=== PATIENT | male | born 1945 | race Caucasian/White ===

== ENCOUNTER 2017-01-23 13:53 | Emergency (ER) | payer OTHER ==
[2014-10-16 20:23] VITALS: BMI 36.9
[~2017-01-23 13:53] MED LIST: BAYER CHEWABLE81 MG PO; COUMADIN2.5 MG PO; COUMADIN5 MG PO; FLOMAX0.4 MG PO; LOPRESSOR25 MG PO; PAXIL30 MG PO; PROTONIX40 MG PO; WELLBUTRIN SR150 MG PO; ZOCOR40 MG PO
[2017-01-23 15:10] LABS: BASOPHILS 0.2 % (0.0-2.0); EOSINOPHILS 0.1 % (0-7); HEMATOCRIT 37.3 % (42.0-54.0); HEMOGLOBIN 11.6 g/dL (13.5-17.5); IMMATURE GRANULOCYTES 0.2 % (0-5); LYMPHOCYTES 11.7 % (15-50); MCH 22.8 pg (26.0-34.0); MCHC 31.1 g/dL (31.0-37.0); MCV 73.4 fL (80.0-100.0); MEAN PLATELET VOLUME 9.2 fL (7.4-10.4); MONOCYTES 5.4 % (2-11); NEUTROPHILS 82.4 % (40-80); PLATELET COUNT 181 10x3/uL (130-400); RBC 5.08 10x6/uL (4.20-6.10); RDW 17.1 % (11.5-14.5); WBC 12.4 10x3/uL (4.8-10.8)
[2017-01-23 15:21] LABS: INR 1.26 (0.85-1.17); PROTIME 15.7 SECONDS (11.6-15.0)
[2017-01-23 15:28] LABS: ALKALINE PHOSPHATASE 96 U/L (46-116); ALT (SGPT) 31 U/L (10-68); BILIRUBIN - TOTAL 0.37 mg/dL (0.2-1.3); CALC OSMOLALITY 292 mosm/kg (275-300); CALCIUM 9.1 mg/dL (8.5-10.1); CARBON DIOXIDE 23.7 mmol/L (21.0-32.0); CHLORIDE - SERUM 106 mmol/L (98-107); CREATININE - SERUM 1.8 mg/dL (0.6-1.3); POTASSIUM - SERUM 4.7 mmol/L (3.5-5.1); SODIUM 142 mmol/L (136-145); UREA NITROGEN 22 mg/dL (7-18); eGFR NON AFRICAN AMERICAN 40 mL/min (90-120)
[2017-01-23 15:30] LABS: GLUCOSE 216 mg/dL (74-106)
[2017-01-23 15:36] LABS: CREATINE KINASE 61 UL (21-232); MAGNESIUM - SERUM 1.9 mg/dL (1.8-2.4); PRO BNP 593 pg/mL (0-125)
[2017-01-23 15:50] LABS: TROPONIN-I < 0.017 ng/mL (0.000-0.060)
[2017-01-23 17:19] LABS: APPEARANCE SLT CLOUDY (CLEAR); COLOR ORANGE (YELLOW)
[2017-01-23 17:20] LABS: WHITE CELLS - URINE 0-5 /hpf (0-5)
[2017-01-23 17:21] LABS: BACTERIA MODERATE /hpf (NONE SEEN); MUCUS <1+ /lpf (NONE SEEN); RED CELLS - URINE >50 /hpf (0-5)
== END 2017-01-23 19:42 | disposition home or self-care (01) ==
LOC: D.ER 13:53
PROVIDERS: Emergency Medicine; Nurse Practitioner Family
DX: R10.9 Unspecified abdominal pain (principal); R11.2 Nausea with vomiting, unspecified; E11.9 Type 2 diabetes mellitus without complications; E78.5 Hyperlipidemia, unspecified

== ENCOUNTER 2017-09-29 14:36 | Emergency (ER) | payer OTHER ==
[2014-10-16 20:23] VITALS: BMI 36.9
[2017-09-29 17:57] LABS: BASOPHILS 0.2 % (0-2); EOSINOPHILS 1.5 % (0-7); HEMATOCRIT 37.6 % (42.0-54.0); HEMOGLOBIN 11.7 g/dL (13.5-17.5); IMMATURE GRANULOCYTES 0.2 % (0-5); LYMPHOCYTES 22.2 % (15-50); MCH 23.5 pg (26.0-34.0); MCHC 31.1 g/dL (31.0-37.0); MCV 75.7 fL (80.0-100.0); MEAN PLATELET VOLUME 9.3 fL (7.4-10.4); MONOCYTES 5.1 % (2-11); NEUTROPHILS 70.8 % (40-80); PLATELET COUNT 186 10x3/uL (130-400); RBC 4.97 10x6/uL (4.20-6.10); RDW 16.7 % (11.5-14.5); WBC 8.9 10x3/uL (4.8-10.8)
[2017-09-29 18:21] LABS: ALBUMIN 3.6 g/dL (3.4-5.0); ALKALINE PHOSPHATASE 81 U/L (46-116); ALT (SGPT) 26 U/L (10-68); CHLORIDE - SERUM 109 mmol/L (98-107); CREATININE - SERUM 1.5 mg/dL (0.6-1.3); POTASSIUM - SERUM 4.6 mmol/L (3.5-5.1); PROTEIN - SERUM 6.6 g/dL (6.4-8.2); SODIUM 144 mmol/L (136-145); UREA NITROGEN 28 mg/dL (7-18); eGFR NON AFRICAN AMERICAN 49 mL/min (90-120)
[2017-09-29 18:22] LABS: CALC OSMOLALITY 293 mosm/kg (275-300); GLUCOSE 114 mg/dL (74-106)
[2017-09-29 18:32] LABS: TROPONIN-I < 0.017 ng/mL (0.000-0.060)
== END 2017-09-29 19:24 | disposition home or self-care (01) ==
LOC: D.ER 14:36
PROVIDERS: Physician Assistant Medical
DX: I10 Essential (primary) hypertension (principal); E11.9 Type 2 diabetes mellitus without complications

== ENCOUNTER 2017-10-03 13:51 | Inpatient (IN) | payer OTHER ==
[~2017-10-03] VITALS: Ht 170.2 cm; Wt 103.0 kg
[2017-10-03 14:38] LABS: ALBUMIN 3.8 g/dL (3.4-5.0); ANION GAP 13.6 mmol/L (8-16); BILIRUBIN - TOTAL 0.21 mg/dL (0.2-1.3); CALCIUM 8.9 mg/dL (8.5-10.1); CREATININE - SERUM 1.5 mg/dL (0.6-1.3); POTASSIUM - SERUM 4.6 mmol/L (3.5-5.1); PROTEIN - SERUM 7.3 g/dL (6.4-8.2)
[2017-10-03 14:54] LABS: BASOPHILS 0.2 % (0-2); EOSINOPHILS 2.1 % (0-7); HEMATOCRIT 39.7 % (42.0-54.0); HEMOGLOBIN 12.5 g/dL (13.5-17.5); IMMATURE GRANULOCYTES 0.1 % (0-5); LYMPHOCYTES 33.4 % (15-50); MCH 23.5 pg (26.0-34.0); MCHC 31.5 g/dL (31.0-37.0); MCV 74.6 fL (80.0-100.0); MEAN PLATELET VOLUME 9.2 fL (7.4-10.4); MONOCYTES 9.9 % (2-11); NEUTROPHILS 54.3 % (40-80); PLATELET COUNT 205 10x3/uL (130-400); RBC 5.32 10x6/uL (4.20-6.10); RDW 16.5 % (11.5-14.5); WBC 9.1 10x3/uL (4.8-10.8)
[2017-10-03 16:17] LABS: APPEARANCE CLEAR (CLEAR); COLOR YELLOW (YELLOW)
[2017-10-03 16:18] LABS: BILIRUBIN NEGATIVE (NEGATIVE); GLUCOSE 250 mg/dL (NEGATIVE); KETONE NEGATIVE (NEGATIVE); NITRITE NEGATIVE (NEGATIVE); PROTEIN NEGATIVE (NEGATIVE); UROBILINOGEN NORMAL (NORMAL)
[2017-10-03 16:20] LABS: RED CELLS - URINE 0-5 /hpf (0-5); WHITE CELLS - URINE OCC /hpf (0-5)
[2017-10-03] MEDS ORDERED: ELIQUIS5 MG PO (21:19)
[2017-10-03] MEDS ORDERED: FORTAMET1000 MG/BO PO (21:21)
[2017-10-03] MEDS ORDERED: STOOL SOFTENER240 MG PO (21:21)
[2017-10-03] MEDS ORDERED: MYRBETRIQ50 MG PO (21:22)
[2017-10-03] MEDS ORDERED: PROSCAR5 MG PO (21:22)
[2017-10-03] MEDS ORDERED: PRINIVIL20 MG PO (21:25)
[2017-10-03] MEDS ORDERED: GLIPIZIDE10 MG PO (21:27)
[2017-10-03] MEDS ORDERED: DETROL LA4 MG PO (21:27)
[2017-10-03] MEDS ORDERED: KLONOPIN0.5 MG PO (21:28)
--- NOTE | 2017-10-03 21:35 | NUR ---
RECIEVED TO ROOM 2208. ALERT,ORIENTED. NO COMPLAINTS VOICED. ORIENETED TO ROOM. CL IN REACH
[2017-10-03 23:01] VITALS: BP 164/85; Ht 170.2 cm; Wt 103.0 kg
[2017-10-04] VITALS: BP 137/79
--- NOTE | 2017-10-04 01:25 | NUR ---
EYES CLOSED. RESP EVEN AND UNALBORED. NO DISTRESS NOTED. CL IN REACH
--- NOTE | 2017-10-04 06:05 | NUR ---
AWAKE,LYING QUIETLY. NO COMPLAINTS VOICED. CL IN REACH
--- NOTE | 2017-10-04 07:40 | NUR ---
ASSESSMENT COMPLETE. IV TO R AC PATENT. D10 INFUSING AT 75 CC/HR VIA PUMP. DENIES ANY NEEDS AT THIS TIME.
[2017-10-04 09:38] VITALS: BP 143/82
--- NOTE | 2017-10-04 12:00 | NUR ---
VISITING WITH FAMILY. DENIES ANY NEEDS AT THIS TIME.
[2017-10-04 13:41] VITALS: BP 134/72
--- NOTE | 2017-10-04 13:50 | NUR ---
IV REMOVED. CATHETER TIP INTACT. DISCHARGE TEACHING GIVEN TO PATIENT AND . VOICED UNDERSTANDING.
--- NOTE | 2017-10-04 13:55 | NUR ---
DC'D HOME WITH . ESCORTED TO VEHICLE BY PUFF IRONER VIA WC WITH BELONGINGS.
== END 2017-10-04 13:55 | disposition home or self-care (01) | DRG 639 ==
LOC: D.ER 13:51 → D.MS 19:13
PROVIDERS: Emergency Medicine; ADMIT Emergency Medicine
DX: E11.649 Type 2 diabetes mellitus with hypoglycemia without coma (principal); I10 Essential (primary) hypertension; Z95.0 Presence of cardiac pacemaker; F41.8 Other specified anxiety disorders; F43.10 Post-traumatic stress disorder, unspecified; Z87.891 Personal history of nicotine dependence

== ENCOUNTER 2018-12-28 21:21 | Emergency (ER) | payer OTHER ==
[~2018-12-28] VITALS: Ht 170.2 cm; Wt 100.0 kg
[~2018-12-28 21:21] MED LIST changes: +DETROL LA4 MG PO; +ELIQUIS5 MG PO; +FORTAMET1000 MG/BO PO; +GLIPIZIDE10 MG PO; +KLONOPIN0.5 MG PO; +MYRBETRIQ50 MG PO; +PRINIVIL20 MG PO; +PROSCAR5 MG PO; +STOOL SOFTENER240 MG PO
[2018-12-28 21:29] VITALS: Ht 170.2 cm; Wt 100.0 kg
[2018-12-28] MEDS ORDERED: GLIPIZIDE10 MG PO (21:33)
[2018-12-28] MEDS ORDERED: DETROL1 MG PO (21:34)
[2018-12-28] MEDS ORDERED: HCTZ25 MG PO (21:34)
[2018-12-28] MEDS ORDERED: BUSPAR10 MG PO (21:35)
[2018-12-28 22:47] LABS: APPEARANCE HAZY (CLEAR); COLOR DK YELLOW (YELLOW); SPECIFIC GRAVITY 1.025 (1.005-1.020)
[2018-12-28 22:48] LABS: BILIRUBIN NEGATIVE (NEGATIVE); GLUCOSE NEGATIVE (NEGATIVE); KETONE NEGATIVE (NEGATIVE); NITRITE NEGATIVE (NEGATIVE); PROTEIN 1+ mg/dL (NEGATIVE); UROBILINOGEN NORMAL (NORMAL)
[2018-12-28 22:49] LABS: BACTERIA MANY /hpf (NONE SEEN); RED CELLS - URINE 25-50 /hpf (0-5)
[2018-12-28] MEDS ORDERED: OMNICEF300 MG PO (22:54)
[2018-12-28 23:05] VITALS: BP 126/70
== END 2018-12-28 23:05 | disposition home or self-care (01) ==
LOC: D.ER 21:21
PROVIDERS: Family Medicine
DX: N39.0 Urinary tract infection, site not specified (principal); R31.9 Hematuria, unspecified; R30.0 Dysuria; E11.9 Type 2 diabetes mellitus without complications